=== PATIENT | male | born 1935 | race Caucasian/White ===

== ENCOUNTER 2025-05-22 06:36 | Emergency (ER) | payer MEDICARE, SELFPAY ==
[2025-05-22 06:38] VITALS: BP 134/70
[2025-05-22 06:39] VITALS: BP 134/70
[2025-05-22 06:42] LABS: Glucose - Point of Care 116 mg/dl (70-99)
[2025-05-22 06:45] VITALS: BMI 23.6
--- NOTE | 2025-05-22 06:55 | ED.GENMED ---
History of Present Illness
General
Chief Complaint: Blood Sugar Problem
Source: patient and ambulance crew
Time Seen by Provider: 05/22/25 06:42
History of Present Illness
History of Present Illness:
89-year-old male presents to the emergency room via ambulance after he called 911 due to leg weakness. Patient awoke from sleep and was feeling unwell. He felt like his legs would not move the way he wanted him to. He was afraid he was having a
stroke or be paralyzed. Medics arrived and found the patient to be hypoglycemic at 41. He was given sugar orally. He did begin to feel better and route here to the emergency room. Patient takes Glucophage and glipizide for diabetes. He states
that his dose of glipizide was recently increased he believes by [facility]. Patient resides in [facility] and is just visiting this area. Currently he feels back to baseline.
Phy Exam
Physical Exam
Physical Exam:
General: Awake, Alert, Oriented X3. No acute distress. Appears stated age
Vitals: unremarkable
Head: Atraumatic
Eyes: Pupils equal, EOMI
Throat: Airway intact, no exudates
Neck: Trachea midline
Lungs: Clear and equal b/l
Heart: Regular rate, no murmurs
Abd: Soft, Nontender, No pulsatile mass
Neuro: Cranial nerves intact, muscle strength 5 out of 5 throughout, sensation intact throughout
Skin: Warm, dry, no rash
Extremities: pulses equal b/l, no edema
Course
Orders/Labs/Results
Orders:
Orders
05/22/25 07:13
Basic Metabolic Panel Urgent
Complete Blood Count/With Diff Urgent
Abnormal Lab Results
05/22/25 05/22/25 05/22/25
06:40 07:13 08:28
WBC 4.6 L 10^3/uL
(4.8-10.8)
RBC 3.11 L 10^6/uL
(4.70-6.10)
Hgb 9.7 L g/dL
(13.0-18.0)
Hct 29.3 L %
(39.0-52.0)
MCV 94.2 H fL
(80.0-94.0)
MCH 31.2 H pg
(27.0-31.0)
Absolute Lymphs (auto) 0.8 L 10^3/uL
(1.2-3.4)
Lymphocytes % 16.2 L %
(20.5-51.1)
Sodium 129 L mmol/L
(135-145)
Glucose 127 H mg/dl
(70-99)
POC Glucose 116 H mg/dl 198 H mg/dl
(70-99) (70-99)
05/22/25 07:13
05/22/25 07:13
Vital Signs
Initial and Last Documented VS:
Initial Vital Signs
Temp Pulse Resp BP Pulse Ox
97.5 F 78 16 134/70 99
05/22/25 06:38 05/22/25 06:38 05/22/25 06:38 05/22/25 06:38 05/22/25 06:38
Last Documented Vital Signs
Temp Pulse Resp BP Pulse Ox
97.5 F 82 15 143/91 98
05/22/25 06:38 05/22/25 08:30 05/22/25 08:30 05/22/25 08:27 05/22/25 08:30
MDM/Problems Addressed
Differential Diagnosis Includes:
CVA, TIA, hypoglycemia, electrolyte abnormality
MDM/Problems Addressed:
Patient presents after being confused and having leg weakness and slurred speech at home. Glucose was measured to be low and his symptoms improved after supplemental glucose. On arrival here the patient has returned to baseline. His glucose was
monitored for couple hours indicating it is stable. He ate a turkey sandwich. Patient will be instructed to reduce his glipizide dose by half. Follow-up with his physician who is managing his diabetes.
*Pulse Oximetry
SaO2: 99
Oxygen Mode of Delivery: Room air
Patient hypoxic: no
*Critical Care Note
Total Time (30-74mins, 75-104mins- exclusive of procedures): Not Applicable
ED Attending Note
-
Portions of this chart may have been created with voice recognition software.� Occasional wrong word or��sound alike� substitutions may have occurred due to the inherent limitations of voice recognition software.
Discharge Plan
Departure
Patient Disposition: Home (Routine Discharge)
Date of Disposition: 05/22/25
Time of Disposition: 08:36
Patient with high blood pressure during this ER visit?: Yes
Condition: Good
Discharge Problem:
Hypoglycemia
Instructions: Low Blood Sugar, Adult (DC), BLOOD PRESSURE
Referrals:
UNKNOWN - PT DOES,NOT KNOW [Family Provider]
Activity Restrictions/Additional Instructions:
Reduce your glipizide dose by half. Follow up with your doctor who manages your diabetes.
Interventions
Interventions:
*Risk Screen - Suicide Last Done: 05/22/25 06:43
*General Assessment Last Done: 05/22/25 06:44
*Neglect/Abuse Screening Last Done: 05/22/25 07:50
*ED- Fall Risk Assessment Last Done: 05/22/25 06:43
*ED COVID-19 Vaccine History Last Done: 05/22/25 06:43
*ED Influenza Vaccine History Last Done: 05/22/25 06:43
ED- Neurological Assessment Last Done: 05/22/25 06:45
Discharge Date and Time
Print Language: GERMAN
[2025-05-22 07:00] VITALS: BP 153/60
[2025-05-22 07:29] LABS: Hematocrit 29.3 % (39.0-52.0); Hemoglobin 9.7 g/dL (13.0-18.0); Mean Corp Hgb Conc. 33.1 g/dL (33.0-37.0); Mean Corpuscular Volume 94.2 fL (80.0-94.0); Nucleated Red Blood Cells % 0 % (-); Platelet Count 273 10^3/uL (130-400); Red Cell Dist. Width 13.1 % (11.5-14.5)
[2025-05-22 07:34] LABS: Blood Urea Nitrogen 11 mg/dl (9-20); Calcium 9.4 mg/dl (8.4-10.2); Carbon Dioxide 26 mmol/L (22-30); Chloride 100 mmol/L (98-107); Estimated Creatinine Clearance 58 ml/min; Glucose 127 mg/dl (70-99); Potassium 4.0 mmol/L (3.5-5.1); Sodium 129 mmol/L (135-145); eGFR > 60.00
[2025-05-22 08:27] VITALS: BP 143/91
[2025-05-22 08:30] LABS: Glucose - Point of Care 198 mg/dl (70-99)
== END 2025-05-22 08:55 | disposition home or self-care (01) ==
LOC: EMR 06:36
PROVIDERS: EMERGENCY PHYSICIAN Emergency Medicine
DX: E11.649 Type 2 diabetes mellitus with hypoglycemia without coma (principal); E16.A1 Hypoglycemia level 1; Z79.84 Long term (current) use of oral hypoglycemic drugs
CPT/HCPCS: 99283; 80048; 82962; 85025